=== PATIENT | female | born 1945 | race Caucasian/White ===

== ENCOUNTER → 2017-01-11 | Outpatient (CLI) | payer OTHER, MEDICARE | LOC: FIMAGING 14:52 | PROVIDERS: ATTEND Family Medicine | DX: Z12.31 Encounter for screening mammogram for malignant neoplasm of breast (principal) | CPT/HCPCS: G0202 ==

== ENCOUNTER 2017-05-04 12:09 | Day surgery (SDC) | payer OTHER, MEDICARE ==
--- NOTE | 2017-05-04 12:04 | PDHPUP ---
History & Physical Update H&P update statement: This history and physical update is based on an assessment of the patient which was completed after admission or registration (within 24 hours), but prior to the surgery/procedure.
[~2017-05-04 12:09] MED LIST: ceFAZolin 2 GM/SWFI 2 GM/20 ML SYR IVP ONE
[2017-05-04] MEDS ORDERED: LR 1,000 ML IV ONE (12:41)
[2017-05-04] MEDS ORDERED: DEXAMETHASONE 4 MG/ML VIAL ONE (13:57)
[2017-05-04] MEDS ORDERED: ROPIVACAINE HCL 150 MG/30 ML INJ ONE (13:57)
[2017-05-04] MEDS ORDERED: BACITRACIN 50,000 UNITS/10 ML SYR IRR ONE ×3 (13:57→15:30)
[2017-05-04] MEDS ORDERED: BUPIVACAINE 0.5% 30 ML SDV ONE (13:57)
[2017-05-04] MEDS ORDERED: MIDAZOLAM 2 MG/2 ML VIAL IVP ONE (13:58)
--- NOTE | 2017-05-04 13:59 | PDANEPAE ---
ANE History of Present Illness here for right foot squamous skin flap ANE Past Medical History - Cardiovascular History Hx Hypertension: No Hx Arrhythmias: No Hx Chest Pain: No Hx Coronary Artery / Peripheral Vascular Disease: No Hx CHF / Valvular Disease: No Hx Palpitations: No - Pulmonary History Hx COPD: No Hx Asthma/Reactive Airway Disease: No Hx Recent Upper Respiratory Infection: No Hx Oxygen in Use at Home: No Hx Sleep Apnea: No Sleep Apnea Screening Result - Last Documented: Negative - Neurologic History Hx Cerebrovascular Accident: No Hx Seizures: No Hx Dementia: No - Endocrine History Hx Diabetes: No - Renal History Hx Renal Disorders: Yes Renal History Comment: STONES - Liver History Hx Hepatic Disorders: No - Neurological & Psychiatric Hx Hx Neurological and Psychiatric Disorders: Yes Neurological / Psychiatric History Comment: 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 polyp removal with colonoscopy,. rotator cuff and bicep tendon repair .surgery ANE Review of Systems Review of systems is: negative Review of Systems: - Exercise capacity Exercise capacity: <4 METS METS (RN): 4 METS ANE Patient History - Allergies Allergies/Adverse Reactions: morphine Allergy (Severe, Verified 05/02/17 11:30) Other-Enter Comments - Home Medications Home medications: home medication list seen and reviewed Home Medications: Gabapentin 05/02/17 [Last Taken 05/03/17] - NPO status NPO Status: no food or drink >8 hours NPO Since - Liquids (Date): 05/03/17 NPO Since - Liquids (Time): 03:30 NPO Since - Solids (Date): 05/03/17 NPO Since - Solids (Time): 02:00 - Anes Hx Anes Hx: no prior problems - Smoking Hx Smoking Status: Former smoker - Family Anes Hx Family Hx Anesthesia Complications: none ANE Labs/Vital Signs - Vital Signs Vital Signs: reviewed preoperatively; see RN documention for details Blood Pressure: 113/63 Heart Rate: 70 Respiratory Rate: 16 O2 Sat (%): 91 Height: 165.1 cm Weight: 65.771 kg ANE Physical Exam - Airway Neck exam: FROM Mallampati Score: Class 1 - Pulmonary Pulmonary: no respiratory distress - Cardiovascular Cardiovascular: regular rate and rhythym - ASA Status ASA Status: II ANE Anesthesia Plan Anesthesia Plan: MAC
[2017-05-04] MEDS ORDERED: fentaNYL 100 MCG/2 ML INJ ONE (14:11)
[2017-05-04] MEDS ORDERED: PROPOFOL/EMULSION 500 MG/50 ML BOTTLE IV ONE (14:12)
[2017-05-04] MEDS ORDERED: LIDOCAINE 1% 300 MG/30 ML SDV ONE (14:19)
[2017-05-04] MEDS ORDERED: PROPOFOL 200 MG/20 ML VIAL ONE ×2 (15:21)
[2017-05-04] MEDS ORDERED: NALOXONE HCL 0.4 MG/ML INJ IVP PRN (16:16)
[2017-05-04] MEDS ORDERED: fentaNYL 100 MCG/2 ML INJ IVP PRN (16:16)
[2017-05-04] MEDS ORDERED: HYDROmorphONE/DILAUDID 1 MG/ML INJ IVP PRN (16:16)
[2017-05-04] MEDS ORDERED: ONDANSETRON 4 MG/2 ML VIAL IVP PRN (16:16)
[2017-05-04] MEDS ORDERED: DEXAMETHASONE 4 MG/ML VIAL IVP PRN (16:16)
--- NOTE | 2017-05-04 16:37 | POSTOPPROG ---
Post Op Note Date of Operation: 05/04/17 Surgeon: [facility] Assistant: NONE Anesthesiologist: DR. AARON BREEN Anesthesia: LMA (LIGHT GENERAL /MAC) Pre-op Diagnosis: SQUAMOUS CELL CA RIGHT ANKLE Post-op Diagnosis: SAME Indication: CANCER Procedure: EXCISION OF LESION AND REPAIR WITH ROTATIONAL SKIN FLAP Findings: NO DEEPER EXTENSION Inf/Abcess present in the surg proc area at time of surgery?: No Depth: Superfical (Skin SQ) EBL: Minimal Complications: NONE Specimen(s): FROZEN SECTION SENT. 2ND SPECIMEN 2 MM OF DISTAL MARGIN AFTER GETTING CALL FROM PATHOLOGY THAT DISTAL MARGIN SQ CELL WAS CLOSE TO DISTAL MARGIN
--- NOTE | 2017-05-04 16:43 | POSTANESTH ---
Post Anesthetic Evaluation Cardiovascular Status: Normal, Stable Respiratory Status: Normal, Stable Level of Consciousness/Mental Status: Can Participate in Eval Pain Control: Adequate, Prn Tx Ordered Nausea/Vomiting Control: Adequate, Prn Tx Ordered Complications Possibly Related to Anesthesia: None Noted
[2017-05-04 16:53] VITALS: TEMP 97.3
[2017-05-04 17:07] VITALS: BP 110/68; PULSE 56; RESP 14; O2SAT 94
--- NOTE | 2017-05-04 18:33 | GOP ---
[f rep st] OPERATIVE REPORT DATE OF OPERATION: 05/04/2017 SURGEON: Theresa Lloyd DPM ANESTHESIA: MAC/light general. ANESTHESIOLOGIST: Jose Ramon Crum M.D. PREOPERATIVE DIAGNOSIS: Squamous cell carcinoma, right ankle. POSTOPERATIVE DIAGNOSIS: Squamous cell carcinoma, right ankle. PROCEDURE PERFORMED: 1. Excision of skin lesion, squamous cell carcinoma, right foot. 2. Rotational skin flap, right foot. FINDINGS: DESCRIPTION OF PROCEDURE: INDICATIONS FOR PROCEDURE: Biopsy report concluding squamous cell carcinoma, extending into the reti cular tissue. Excision recommended with 4 mm margins. Discussion with her oncologist, Dr. Moraes, carmen marsh. At this time, patient elects to proceed with surgery, also reporting it is quite painful and anxious to get it removed. PROCEDURE AND FINDINGS: The patient was brought into the operating room, placed on the operating tab le in a supine position. Intravenous sedation, light general was administered by the anesthesiologis t. A peripheral nerve block was obtained utilizing a total of 15 cc of a 1:1:1 mix of 0.5% Marcaine plain, 0.5% ropivacaine plain and 1% lidocaine plain. The lower extremity was prepped and draped in the usual sterile manner. After the limb had been elevated, it was exsanguinated with an Esmarch ban dage and the ankle tourniquet, which was placed higher lower calf, to 220 mmHg. Stockinette utilized under the ankle cuff. #1 excision of skin lesion: The skin lesion was outlined with a surgical marker and then with the ad dition of a 4 mm margin. Utilizing a skin incision created with a 15 blade and then with gentle diss ection, skin was resected. There was no pathologic tissue that appeared to extend into the subcutane ous tissue. The island of skin was resected in toto and sent to Pathology frozen for examination and to ensure all margins are clear. It took approximately 40 minutes for Pathology to contact us tammie siddiqui margins, reporting clear margins proximally, medially and laterally; however, very close to the distal margin. Note when the skin lesion was excised, it was marked with a short suture at its proxi mal aspect, a longer suture distal and a medium sized suture tag along its medial aspect. Therefore, an additional 2 mm was resected along the distal aspect where the skin lesion was. And then at this time, a skin flap was created with the apex of the lobe extending into the sinus tarsi and towards t he lateral ankle, with approximately 1 cm, length approximately 3 cm. Undermining occurred to allow the flap to rotate; however, there was no undermining of the proximal s tem. Throughout the procedure the wound was irrigated with bacitracin irrigation solution. The apex of the lobe was then tacked to the more proximal portion of the defect. Then slowly additional sing le interrupted sutures were placed, securing the flap. Then proceeding to the larger defect, which w as now more of an elliptical incision, closure was able to be obtained. The foot was held in a dorsi flexed and everted position. Defect was successfully closed with 4-0 Prolene in a single interrupted suture manner. Tourniquet was released and a normal hyperemic response was noted to all digits. Note, while waiting for the Pathology report, the tourniquet had been released and was down and reinflated just prior to creating the skin flap. Normal hyperemic response noted to all digits, the island turning pink. Dr marcelina included Xeroform, 4 x 4's, fluff, and a light plaster cast bandage was applied in a figure-o f-eight type fashion to help hold the foot in a 90 degree position to the leg to reduce tension onto the skin graft. Reinforced with an Pratik bandage. The patient tolerated the procedure and anesthesia well and left the operating room with vital signs stable and vascular status intact to all digits. There were no intraoperative complications. Additi onal skin wedge from the distal margin was sent to Pathology for examination. Additional injectables included 6 cc of the Marcaine, ropivacaine, lidocaine mixture. The patient wa s doing well in recovery, was not in any pain. She is to follow up in our office in 2 days for a wou nd check. Prognosis good. /[id number]/MODL
== END 2017-05-04 17:48 | disposition home or self-care (01) ==
LOC: FSGY 12:09
PROVIDERS: ATTEND Podiatrist
DX: C44.722 Squamous cell carcinoma of skin of right lower limb, including hip (principal); Z85.43 Personal history of malignant neoplasm of ovary; Z87.891 Personal history of nicotine dependence; Z87.442 Personal history of urinary calculi
CPT/HCPCS: J0690; J1100; J2250; J2704; J2795; J3010